=== PATIENT | female | born 1935 | race Hispanic/Latino ===

== ENCOUNTER 2023-03-07 13:51 | Observation (INO) | payer MEDICARE, MEDICAID ==
[~2023-03-07] VITALS: Ht 124.5 cm; Wt 51.0 kg
--- NOTE | 2023-03-07 14:00 | NUR ---
PATIENT ARRIVED VIA EMS. PATIENT WAS NAUSIOUS AND DIZZY. PATIENT EVALUATED BY DR. MCDERMOTT AND STROKE ALERT CALLED. PATIENT HAS A 20G IN THE LEFT AC. BLOOD SUGAR 156. PATIENT TAKEN TO CT.
--- NOTE | 2023-03-07 14:20 | NUR ---
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 PATIENT DENIES ANY DIZZINESS AT THIS TIME. CTA OF THE BRAIN NOW BEING COMPLETED.
[2023-03-07 14:27] LABS: BASO% 0.6 % (0-3); HEMATOCRIT 34.2 % (37.0-47.0); HEMOGLOBIN 11.2 g/dl (12.0-16.0); IMMATURE GRANULOCYTES 0.2 % (0.0-5.0); LYMPH% 22.2 % (15-41); MEAN CORPUSCULAR HGB 30.8 pG CALC (26.0-32.0); MEAN CORPUSCULAR HGB CONC 32.7 g/dL CAL (32.0-36.0); MONO% 7.2 % (2-13); NEUT# 4.44 thou/uL (2.00-7.15); NEUT% 67.8 % (42-76); RED BLOOD COUNT 3.64 mill/uL (4.20-5.60); RED CELL DISTRI WIDTH 12.2 % (11.5-15.5)
[2023-03-07 14:41] LABS: ALBUMIN 3.9 g/dL (3.2-5.0); ALKALINE PHOSPHATASE 50 u/l (38-126); ANION GAP 11 (6-22 (CALC)); BILIRUBIN, TOTAL 0.5 mg/dL (0.02-1.3); BUN 30 mg/dL (8-23); BUN/CREATININE RATIO 24 (12-20 (CALC)); CARBON DIOXIDE 23 mmol/l (22-30); CHLORIDE 108 mmol/l (95-108); CREATININE 1.2 mg/dL (0.5-1.0); GFR FOR AFR.AMER. 51 ML/MIN (>=60 (CALC)); GFR OTHER RACES 42 ML/MIN (>=60 (CALC)); POTASSIUM 4.5 mmol/l (3.5-5.1); SGOT/AST 23 u/l (9-36); SODIUM 137 mmol/l (137-146)
[2023-03-07 14:43] LABS: INTERNATIONAL NORMALIZED RATIO 1.1 RATIO (0.7-1.3); PROTHROMBIN TIME 10.6 SECONDS (9.0-12.5)
--- NOTE | 2023-03-07 14:46 | NUR ---
PATIENT BROUGHT BACK TO THE ED. V/S STABLE. PATIENT HAS NO COMPLAINTS
[2023-03-07] MEDS ORDERED: PLAVIX75 MG PO (14:49)
[2023-03-07] MEDS ORDERED: COZAAR100 MG PO (14:49)
[2023-03-07] MEDS ORDERED: PROTONIX40 M2 PO (14:52)
[2023-03-07] MEDS ORDERED: LINZESS145 MCG PO (14:53)
--- NOTE | 2023-03-07 15:57 | NUR ---
RESTING, NO DISTRESS. BEDSIDE SWALLOW EVAL COMPLETED WITHOUTOUT DIFFICULTY.
--- NOTE | 2023-03-07 16:40 | NUR ---
DR. MCDERMOTT AT THE BEDSIDE TO DISCUSS POC. PATIENT TO BE ADMITTED. PATIENT HAS C/O PAIN TO HER NECK. TORADOL 15MG IV GIVEN
[2023-03-07 16:48] LABS: URINE BILIRUBIN - DIPSTICK NEGATIVE (NEGATIVE); URINE BLOOD DIPSTICK LARGE (NEGATIVE); URINE GLUCOSE - DIPSTICK NEGATIVE (NEGATIVE); URINE KETONE NEGATIVE (NEGATIVE); URINE LEUK ESTERASE NEGATIVE (NEGATIVE); URINE PROTEIN - DIPSTICK 30 mg/dL (NEG-TRACE); URINE UROBILINOGEN - DIPSTICK 0.2 E.U./dL (0.2)
[2023-03-07 16:49] LABS: URINE COLOR DK. YELLOW; URINE NITRITE - DIPSTICK NEGATIVE (Negative)
[2023-03-07 16:53] LABS: URINE RBC 50-100 RBC/hpf (0-5); URINE SQUAMOUS EPITHELIAL CELL FEW EPI/hpf (0-FEW)
[2023-03-07 17:47] VITALS: BP 86/42
[2023-03-07 18:01] VITALS: BP 111/60
--- NOTE | 2023-03-07 18:11 | NUR ---
PATIENT HAS RELIEF FROM TORADOL GIVEN. PATIENT NOW EATING DINNER. JAYE MARTINES ASSUMING CARE ODF THE PATIENT AT THIS TIME. VERBAL REPORT GIVEN.
[2023-03-07 18:18] VITALS: BP 142/67
--- NOTE | 2023-03-07 18:56 | NUR ---
REPORT RECEIEVED FROM Bryan SMITH RN
--- NOTE | 2023-03-07 19:25 | NUR ---
PTIENT LAYING IN BED RESTING, NO APPARENT DISTRESS NOTED. RESPIRATIONS EVEN AND UNLABORED. RISE AND FALL OF CHEST NOTED. PATIENT IS MALAY SPEAKING ONLY, MRI CHECKLIST COMPLETED, PATIENT WEARS DENTURES, BUT DOES NOT HAVE THEM IN AT THE TIME. PATIENT ORIENTED TO ROOM AND CALL LIGHT SYSTEM. CALL LIGHT AND BEDSIDE TABLE WITHIN REACH. BED ALARM ON FOR SAFETY.
[2023-03-07 23:59] VITALS: BP 141/59
--- NOTE | 2023-03-08 | NUR ---
PATIENT RESTING, WATCHING TV, NO APPARENT DISTRESS NOTED. RESPIRATIONS EVEN AND UNLABORED, RISE AND FALL OF CHEST NOTED. CALL LIGHT AND BEDSIDE TABLE WITHIN REACH. BED ALARM ON FOR SAFETY.
--- NOTE | 2023-03-08 04:00 | NUR ---
PATIENT RESTING IN BED. 2ND IV DISLODGED. PT STATES SHE DOES NOT WANT TO BE BOTHERED AT THIS TIME.
[2023-03-08 04:07] VITALS: BP 147/60
[2023-03-08 05:19] LABS: CHOLESTEROL HDL RATIO 4.7 (<4.4 (CALC)); MAGNESIUM 2.3 mg/dL (1.6-2.3)
[2023-03-08 06:49] VITALS: BP 128/52
--- NOTE | 2023-03-08 07:45 | NUR ---
PT RESTING IN RECLINER. ASSESSMENT COMPLETED. 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 EDUCATED PT IN CURRENT PLAN OF CARE. PT INDICATED UNDERSTANDIING. IV ESTABLISHED: LAC 20G TELE MONITOR IN PLACE. CONTINOUS MONITORING PER ED. FALL/SAFEY PRECAUTIONIN PLACE. CHAIR ALARM ACTIVATED. CALL LIGHT WITHIN REACH
[2023-03-08 10:30] VITALS: BP 139/59
[2023-03-08 10:43] VITALS: BP 139/59
--- NOTE | 2023-03-08 12:00 | NUR ---
PT RESTING IN RECLINER EATING LUNCH. NO DISTRESS NOTED. FALL/SAFTEY PRECAUTIONIN PLACE. CALL LIGHT WITHIN REACH
[2023-03-08 14:32] VITALS: BP 141/60
--- NOTE | 2023-03-08 16:00 | NUR ---
PT RESTIING IN RECLINER. STATES NO NEEDS AT THIS TIME. BREATHING IS EVEN AND UNLABORED. STATES NO PAIN/ DIZZIESS. FALL/SAFTEY PRECAUITON IN PLACE. CALL LIGHT WITHIN REACH
--- NOTE | 2023-03-08 16:25 | NUR ---
patient voided x2 hat in toilet paient keep missing the hat.
--- NOTE | 2023-03-08 17:43 | NUR ---
Discharge instructions given. Patient verbalizes understanding of same. Discharged in stable condition via Wheelchair to Home with staff. All belongings sent with pt.
== END 2023-03-08 17:43 | disposition home or self-care (01) ==
LOC: ED 13:51 → MS2 17:37
PROVIDERS: Family Medicine; ADMIT Internal Medicine; ATTEND Internal Medicine
DX: R42 Dizziness and giddiness (principal); I10 Essential (primary) hypertension; I65.23 Occlusion and stenosis of bilateral carotid arteries; Z86.73 Personal history of transient ischemic attack (TIA), and cerebral infarction without residual deficits; Z79.02 Long term (current) use of antithrombotics/antiplatelets